=== PATIENT | female | born 1965 ===

== ENCOUNTER 2017-10-18 18:20 | Emergency (ER) | payer BC, OTHER ==
[2017-10-18] MEDS ORDERED: Ibuprofen TAB* 600 MG PO ONE (20:03)
[2017-10-18] MEDS ORDERED: Tetan/Diph/Pertus SYR(Tdap)* 0.5 ML SYR(BOOSTRIX) use SYR IM ONE (20:03)
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
[2017-10-18 21:00] VITALS: BP 129/92
== END 2017-10-18 20:59 | disposition home or self-care (01) ==
LOC: ED 18:20
DX: S61.210A Laceration without foreign body of right index finger without damage to nail, initial encounter (principal); W45.8XXA Other foreign body or object entering through skin, initial encounter; Y92.009 Unspecified place in unspecified non-institutional (private) residence as the place of occurrence of the external cause; Z88.0 Allergy status to penicillin
CPT/HCPCS: 12001; 99282